=== PATIENT | female | born 1990 | race Caucasian/White ===

== ENCOUNTER 2017-11-24 06:08 | Inpatient (IN) | payer BC, SELFPAY ==
[2017-11-24] MEDS ORDERED: FENTANYL CITR 100 MCG/2 ML ONE ×4 (06:54→14:39)
[2017-11-24 06:55] LABS: Urine Blood NEGATIVE (NEG); Urine Glucose TRACE (NEG); Urine Protein NEGATIVE (NEG); Urine pH 6.5 (5.0-7.0)
[2017-11-24 07:02] LABS: Absolute Lymphocytes (CBC) 1.5 K/uL (0.7-4.9); Absolute Monocytes 0.2 K/uL (0.1-1.3); Absolute Neutrophil 5.6 K/uL (1.8-8.0); Basophils % 0.7 % (0-1.3); Eosinophils % 0.8 % (0-4.4); Hematocrit 40.6 % (36.0-45.0); Lymphocytes % 19.7 % (15.3-44.8); MCH 27.2 pg (27.0-35.0); MCV 81.5 fL (80-100); MPV 9.8 fL (7.6-11.3); Monocytes % 3.1 % (3.3-12.3); RBC Red Blood Cell Count 4.98 M/uL (3.86-4.86)
[2017-11-24 07:04] LABS: Urine Bacteria 20-50 /HPF (<20); Urine Culture Reflex Order REFLEXED; Urine RBC <5 /HPF (NONE SEEN)
[2017-11-24 07:08] LABS: Bicarbonate 26 mEq/L (21-31); Glucose Level 233 mg/dL (65-120); Potassium 3.5 mEq/L (3.6-5.0); Sodium Level 138 mEq/L (135-145)
[2017-11-24 07:15] LABS: ALT/SGPT 21 IU/L (10-60); AST/SGOT 18 IU/L (10-42); Albumin 4.4 g/dL (3.2-5.5); Alkaline Phosphatase 56 IU/L (42-121); BUN Blood Urea Nitrogen 13 mg/dL (6-20); Bilirubin Direct 0.1 mg/dL (0-0.2); Bilirubin Total 0.5 mg/dL (0.3-1.2); Protein, Total 7.2 g/dL (6.0-8.3)
[2017-11-24] MEDS ORDERED: CEFTRIAXONE/SWI 1gm 1 GM/10 ML SYR ONE (07:16)
--- NOTE | 2017-11-24 09:12 | RAD REPORT ---
EXAM DESCRIPTION: US - Abdomen Exam Limited - 11/24/2017 7:25 am CLINICAL HISTORY: Abdominal pain. COMPARISON: None. FINDINGS: The gallbladder is borderline distended. A couple of small gallstones are suspected. The g allbladder wall is upper limits normal caliber. The common bile duct measures 7 millimeters. . IMPRESSION: Cholelithiasis with borderline gallbladder distention. Mild dilatation the common bile duct may indicate a stone within the duct.
--- NOTE | 2017-11-24 10:03 | EDPHYS ---
Physician Documentation [facility] Name: Mercedes Dubon Age: 27 yrs Sex: Female : 1990 Arrival Date: 11/24/2017 Time: 06:13 Bed 8 Private MD: ED Physician Derick Wang HPI: 11/24 07:14 This 27 yrs old Female presents to ER via Ambulatory with complaints of snw Abdominal Pain. 07:14 The patient presents with abdominal pain in the right upper quadrant. Onset: The snw symptoms/episode began/occurred suddenly, last night. The symptoms radiate to right back. Associated signs and symptoms: Pertinent positives: nausea and vomiting. The symptoms are described as sharp, steady. Severity of pain: At its worst the pain was moderate. The patient has not experienced similar symptoms in the past. The patient has not recently seen a physician. 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 - Social history:: Smoking status: Patient/guardian denies using tobacco. - Ebola Screening: : No symptoms or risks identified at this time. ROS: 07:13 Constitutional: Negative for fever, chills, and weight loss, Eyes: Negative for injury, snw pain, redness, and discharge, ENT: Negative for injury, pain, and discharge, Neck: Negative for injury, pain, and swelling, Cardiovascular: Negative for chest pain, palpitations, and edema, Respiratory: Negative for shortness of breath, cough, wheezing, and pleuritic chest pain, Back: Negative for injury and pain, : Negative for injury, bleeding, discharge, and swelling, MS/Extremity: Negative for injury and deformity, Skin: Negative for injury, rash, and discoloration, Neuro: Negative for headache, weakness, numbness, tingling, and seizure. 07:13 Abdomen/GI: Positive for abdominal pain, nausea, abdominal cramps, of the right upper quadrant. Exam: 06:50 Constitutional: This is a well developed, well nourished patient who is awake, alert, snw and in no acute distress. Head/Face: Normocephalic, atraumatic. Eyes: Pupils equal round and reactive to light, extra-ocular motions intact. Lids and lashes normal. Conjunctiva and sclera are non-icteric and not injected. Cornea within normal limits. Periorbital areas with no swelling, redness, or edema. ENT: Nares patent. No nasal discharge, no septal abnormalities noted. Tympanic membranes are normal and external auditory canals are clear. Oropharynx with no redness, swelling, or masses, exudates, or evidence of obstruction, uvula midline. Mucous membranes moist. Neck: Trachea midline, no thyromegaly or masses palpated, and no cervical lymphadenopathy. Supple, full range of motion without nuchal rigidity, or vertebral point tenderness. No Meningismus. Chest/axilla: Normal chest wall appearance and motion. Nontender with no deformity. No lesions are appreciated. Cardiovascular: Regular rate and rhythm with a normal S1 and S2. No gallops, murmurs, or rubs. Normal PMI, no JVD. No pulse deficits. Respiratory: Lungs have equal breath sounds bilaterally, clear to auscultation and percussion. No rales, rhonchi or wheezes noted. No increased work of breathing, no retractions or nasal flaring. Back: No spinal tenderness. No costovertebral tenderness. Full range of motion. Skin: Warm, dry with normal turgor. Normal color with no rashes, no lesions, and no evidence of cellulitis. MS/ Extremity: Pulses equal, no cyanosis. Neurovascular intact. Full, normal range of motion. Neuro: Awake and alert, GCS 15, oriented to person, place, time, and situation. Cranial nerves II-XII grossly intact. Motor strength 5/5 in all extremities. Sensory grossly intact. Cerebellar exam normal. Normal gait. 06:50 Abdomen/GI: Inspection: abdomen appears normal, Bowel sounds: normal, Palpation: moderate abdominal tenderness, in the right upper quadrant, Indicators: Engel's sign is positive. Vital Signs: 06:28 BP 135 / 80; Pulse 67; Resp 18; Temp 100.1(O); Pulse Ox 100% on R/A; Weight 101.15 kg; mg2 Height 5 ft. 6 in. (167.64 cm); Pain 10/10; 09:30 BP 107 / 62; Pulse 70; Resp 16; Pulse Ox 99% on R/A; Pain 7/10; sg 12:55 BP 111 / 67; Pulse 68 MON; Resp 17 S; Pulse Ox 99% on R/A; sg 13:27 Temp 98.9; sg 06:28 Body Mass Index 35.99 (101.15 kg, 167.64 cm) mg2 MDM: 06:24 Patient medically screened. snw 07:45 Data reviewed: vital signs, nurses notes. Data interpreted: Pulse oximetry: on room air snw is 100 %. Interpretation: normal. Counseling: I had a detailed discussion with the patient and/or guardian regarding: the historical points, exam findings, and any diagnostic results supporting the discharge/admit diagnosis, the presence of at least one elevated blood pressure reading (>120/80) during this emergency department visit, lab results, radiology results. Physician consultation: Dr Wang. ED course: Dr. Wang will speak with Dr Giordano re: pt condition and plan of care. 11/24 06:43 Order name: Urine Dipstick--Ancillary (enter results); Complete Time: 06:58 eb 11/24 06:43 Order name: Urine --Ancillary (enter results); Complete Time: 06:58 eb 11/24 06:45 Order name: Basic Metabolic Panel; Complete Time: 07:15 snw 11/24 06:45 Order name: CBC with Diff; Complete Time: 07:05 snw 11/24 06:45 Order name: Creatinine for Radiology; Complete Time: 07:13 snw 11/24 06:45 Order name: Hepatic Function; Complete Time: 07:15 snw 11/24 06:45 Order name: Urine Microscopic Only; Complete Time: 07:05 snw 11/24 06:45 Order name: IV Saline Lock; Complete Time: 06:52 snw 11/24 06:45 Order name: Labs collected and sent; Complete Time: 06:52 snw 11/24 06:45 Order name: US Abdomen Limited; Complete Time: 09:40 snw 11/24 07:05 Order name: Urine Culture EDMS 11/24 10:01 Order name: NPO; Complete Time: 10:02 snw Administered Medications: 06:57 Drug: fentaNYL (PF) 50 mcg Route: IVP; Site: right antecubital; mg2 07:30 Follow up: Response: No adverse reaction; Pain is decreased sg 07:22 Drug: Rocephin - (cefTRIAXone) 1 grams Route: IVPB; Infused Over: 30 mins; Site: right sg antecubital; 09:52 Drug: fentaNYL (PF) 50 mcg Route: IVP; Site: right antecubital; sg 10:29 Follow up: Response: No adverse reaction; Pain is decreased sg Disposition: 11/24/17 10:02 Hospitalization ordered by Vipul Giordano for Inpatient Admission. Preliminary diagnosis is Choledocolithiasis. - Bed requested for Telemetry/MedSurg (Inpatient). - Status is Inpatient Admission. sg - Condition is Stable. - Problem is new. - Symptoms are unchanged. UTI on Admission? No Addendum: 11/29/2017 13:29 Co-signature as Attending Physician, Derick Wang MD. g s Signatures: Dispatcher [employer] EDIA Itzel Izaguirre RN RN George Fenton RN RN Juliann Hinton, BURR MILL OPERATOR-C BURR MILL OPERATOR-Csnw Derick Wang MD MD Geovanni Squires RN RN mg2 Corrections: (The following items were deleted from the chart) 11/24 06:58 06:28 Home Meds: metformin 500 mg Oral tab; mg2 mg2 13:11 10:02 Hospitalization Ordered by Vipul Giordano MD for Inpatient Admission. Preliminary dw diagnosis is Choledocolithiasis. Bed requested for Telemetry/MedSurg (Inpatient). Status is Inpatient Admission. Condition is Stable. Problem is new. Symptoms are unchanged. UTI on Admission? No. snw 13:30 13:11 11/24/2017 10:02 Hospitalization Ordered by Vipul Giordano MD for Inpatient sg Admission. Preliminary diagnosis is Choledocolithiasis. Bed requested for Telemetry/MedSurg (Inpatient). Status is Inpatient Admission. Condition is Stable. Problem is new. Symptoms are unchanged. UTI on Admission? No. dw
--- NOTE | 2017-11-24 10:03 | ER ---
Nurse's Notes [facility] Name: Mercedes Dubon Age: 27 yrs Sex: Female : 1990 Arrival Date: 11/24/2017 Time: 06:13 Bed 8 Private MD: Diagnosis: Choledocolithiasis Presentation: 11/24 06:24 Presenting complaint: Patient states: she is having epigastric pain with vomiting and mg2 diarrhea once tonight. she took tums \T\ 0330H and flexeril \T\ 0500H. Transition of care: patient was not received from another setting of care. Onset of symptoms was November 24, 2017. Risk Assessment: Do you want to hurt yourself or someone else? Patient reports no desire to harm self or others. Initial Sepsis Screen: Does the patient meet any 2 criteria? No. Patient's initial sepsis screen is negative. Does the patient have a suspected source of infection? No. Patient's initial sepsis screen is negative. 06:24 Method Of Arrival: Ambulatory mg2 06:24 Acuity: JUAN 3 mg2 06:33 Care prior to arrival: None. 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 - Social history:: Smoking status: Patient/guardian denies using tobacco. - Ebola Screening: : No symptoms or risks identified at this time. Screenin:32 Abuse screen: Denies threats or abuse. Denies injuries from another. Nutritional mg2 screening: No deficits noted. Tuberculosis screening: No symptoms or risk factors identified. Fall Risk None identified. Assessment: 06:30 General: Appears in no apparent distress. Behavior is calm, cooperative. Pain: mg2 Complains of pain in abdomen Pain does not radiate. Pain currently is 10 out of 10 on a pain scale. Quality of pain is described as aching, Pain began gradually, Is intermittent, Noted to be grimacing. Neuro: Level of Consciousness is awake, alert, obeys commands, Oriented to person, place, time. Cardiovascular: Capillary refill < 3 seconds Patient's skin is warm and dry. Respiratory: Airway is patent Respiratory effort is even, unlabored, Respiratory pattern is regular, symmetrical. GI: Abd is soft Reports upper abdominal pain, diarrhea, epigastric pain, vomiting. : No signs and/or symptoms were reported regarding the genitourinary system. EENT: No signs and/or symptoms were reported regarding the EENT system. Derm: Skin is intact, Skin is pink, warm \T\ dry. normal. Musculoskeletal: No signs and/or symptoms reported regarding the musculoskeletal system. 06:33 GI: Bowel sounds present X 4 quads. mg2 07:15 Reassessment: Patient appears in no apparent distress at this time. Patient and/or sg family updated on plan of care and expected duration. Pain level reassessed. Patient is alert, oriented x 3, equal unlabored respirations, skin warm/dry/pink. Patient states feeling better. 09:53 Reassessment: Patient appears in no apparent distress at this time. Patient and/or sg family updated on plan of care and expected duration. Pain level reassessed. Patient is alert, oriented x 3, equal unlabored respirations, skin warm/dry/pink. pt updated on results, awaiting OR consult/Surgeon evaluation at this time, awaiting admission orders, no new ER orders have been received at this time, will continue to monitor Patient states feeling better. 10:29 Reassessment: Patient appears in no apparent distress at this time. Patient and/or sg family updated on plan of care and expected duration. Pain level reassessed. Patient is alert, oriented x 3, equal unlabored respirations, skin warm/dry/pink. pt ambulatory to the restroom, steady gait. 13:18 Reassessment: pt updated attempt to call report, no answer on 2nd floor at this time, sg pt stated understanding, will continue to call 2nd floor. Vital Signs: 06:28 BP 135 / 80; Pulse 67; Resp 18; Temp 100.1(O); Pulse Ox 100% on R/A; Weight 101.15 kg; mg2 Height 5 ft. 6 in. (167.64 cm); Pain 10/10; 09:30 BP 107 / 62; Pulse 70; Resp 16; Pulse Ox 99% on R/A; Pain 7/10; sg 12:55 BP 111 / 67; Pulse 68 MON; Resp 17 S; Pulse Ox 99% on R/A; sg 13:27 Temp 98.9; sg 06:28 Body Mass Index 35.99 (101.15 kg, 167.64 cm) mg2 ED Course: 06:13 Patient arrived in ED. al2 06:23 Geovanni Squires, RN is Primary Nurse. mg2 06:24 Juliann Hinton FNP-C is [facility]. snw 06:24 Derick Wang MD is Attending Physician. snw 06:27 Triage completed. mg2 06:30 Arm band placed on. mg2 06:33 Patient has correct armband on for positive identification. Bed in low position. Call mg2 light in reach. Side rails up X 1. 06:57 Inserted saline lock: 20 gauge in right antecubital area, using aseptic technique. mg2 Blood collected. 07:23 Primary Nurse role handed off by Geovanni Squires RN sg 07:23 George Fenton RN is Primary Nurse. sg 07:25 US Abdomen Limited In Process Unspecified. EDMS 07:29 Ultrasound completed. aa4 08:00 Diet: Patient is NPO. sg 10:01 Vipul Giordano MD is Hospitalizing Provider. snw 13:22 No provider procedures requiring assistance completed. Patient admitted, IV remains in sg place. intact, No redness/swelling at site. Administered Medications: 06:57 Drug: fentaNYL (PF) 50 mcg Route: IVP; Site: right antecubital; mg2 07:30 Follow up: Response: No adverse reaction; Pain is decreased sg 07:22 Drug: Rocephin - (cefTRIAXone) 1 grams Route: IVPB; Infused Over: 30 mins; Site: right sg antecubital; 09:52 Drug: fentaNYL (PF) 50 mcg Route: IVP; Site: right antecubital; sg 10:29 Follow up: Response: No adverse reaction; Pain is decreased sg Outcome: 10:02 Decision to Hospitalize by Provider. snw 13:28 Admitted to Med/surg accompanied by tech, via wheelchair, room 212, with chart, Report sg called to angela HUFFMAN 13:28 Condition: stable 13:28 Instructed on the need for admit, safety practices, Demonstrated understanding of instructions. 13:30 Patient left the ED. sg Signatures: Dispatcher [facility] EDMS George Fenton, RN RN sg Juliann Hinton, TAIL PULLER-C TAIL PULLER-Csnw Tanisha Pressley aa4 Cyndi Rowan al2 Geovanni Squires, RN RN mg2 Corrections: (The following items were deleted from the chart) 06:58 06:28 Home Meds: metformin 500 mg Oral tab; mg2 mg2
[2017-11-24] MEDS ORDERED: CEFOXITIN 1 GM in NA CHLORIDE 0.9% 100 ML IVPB SCH (13:43)
[2017-11-24] MEDS ORDERED: Morphine 2 MG/2 ML SYR IV PRN ×2 (13:43→18:23)
[2017-11-24] MEDS ORDERED: ACETAMINOPHEN 500 MG TAB PO PRN (13:43)
[2017-11-24] MEDS ORDERED: ONDANSETRON 4 MG/2 ML VIAL IV PRN (13:43)
[2017-11-24] MEDS ORDERED: PROPOFOL 200 MG/20 ML VIAL IV ONE ×2 (13:47→16:38)
[2017-11-24] MEDS ORDERED: MIDAZOLAM HCL 2 MG/2 ML INJ ONE ×2 (13:47→16:38)
[2017-11-24] MEDS: CEFOXITIN/SWI 1gm 1 GM/10 ML SYR IV SCH ×2 (14:03→18:32)
[2017-11-24] MEDS: D5 0.45 NS 1,000 ML IV SCH ×2 (14:10→20:09)
[2017-11-24] MEDS ORDERED: GLYCOPYRROLATE 0.2 MG/ML SYR ONE ×2 (14:11→17:45)
[2017-11-24] MEDS ORDERED: NEOSTIGMINE 1 MG/ML -5 ML SYRINGE ONE (14:12)
[2017-11-24] MEDS ORDERED: ROCURONIUM 50 MG/5 ML VIAL IV ONE ×2 (14:12→16:38)
[2017-11-24] MEDS ORDERED: LIDOCAINE 2% INJ, MPF 2 ML 1 ML ONE (14:17)
[2017-11-24] MEDS ORDERED: NA CHLORIDE 0.9% 1,000 ML ONE (15:12)
[2017-11-24] MEDS: BUPIVACAINE 0.5% Inj,MDV 50 mL VIAL ONE ×2 (15:51→17:01)
[2017-11-24] MEDS ORDERED: SUCCINYLCHOLINE 20 MG/ML (10 ML) IV ONE (16:33)
[2017-11-24] MEDS ORDERED: FENTANYL CITR 250 MCG/5 ML ONE (16:38)
--- NOTE | 2017-11-24 16:49 | P.HP ---
Date of Service: 11/24/17 PC: This 27-year-old female presents to the emergency room with severe abdominal pain for diagnosis and treatment. HPC: Patient has been experiencing pain in the right upper quadrant, going straight to her shoulder blade. Describes as very severe. Never had a pain like that before. PMH: 2 para 2 PSHx: 2 C-sections SOC: No known allergies SYS REVIEW: No cough, wheeze, shortness of breath. No chest pain or palpitations. No urinary complaints O/E awake alert vital signs are stable HEENT: Within normal limits, not jaundice Chest: Clear ABD: Soft nontender LOCO: Intact DATA: Elevated white cell count, CT scan demonstrates cholecystitis IMPRESSION: Cholecystitis with cholelithiasis PLAN: I will take her to the operating room for laparoscopic possible open cholecystectomy with intraoperative cholangiogram. The risks of this procedure have been discussed. The possibility of bleeding, infection, injury to bile ducts blood vessels and intestines were described. The possible need for an open and/or further surgeries and procedures was discussed. She understands and wants us to proceed.
[2017-11-24] MEDS ORDERED: DEXAMETHASONE 10 MG/ML VIAL ONE (17:09)
[2017-11-24] MEDS ORDERED: ONDANSETRON HCL 40 MG/20 ML VIAL ONE (17:14)
[2017-11-24] MEDS ORDERED: Ringers Lactate 1,000 ML IV ONE (17:28)
[2017-11-24] MEDS ORDERED: LABETALOL HCL 100 MG/20 ML ONE (17:28)
[2017-11-24] MEDS ORDERED: MEPERIDINE HCL 25 MG/0.5 ML ONE (18:04)
[2017-11-24] MEDS ORDERED: KETOROLAC 30 MG/ML INJ ONE (18:05)
--- NOTE | 2017-11-24 18:11 | P.OP ---
Preoperative diagnosis: Acute cholecystitis with cholelithiasis Postoperative diagnosis: The site Primary procedure: Laparoscopic cholecystectomy Secondary procedure: Cholangiogram Anesthesia: General Estimated blood loss: Than 20 cc Specimen: 1 gallbladder Operative Technique: The patient was brought to the operating room placed supine on the table. After the induction of adequate general endotracheal anesthesia, the area of the abdomen was prepped with a DuraPrep solution, and draped in the usual aseptic manner. A subumbilical incision was made. This brought down through the skin and subcutaneous tissue. The Visiport was used to enter the peritoneal cavity and created pneumoperitoneum to approximately 12 mm of mercury. Under direct vision a 5 mm trocar was placed in the upper midline, and 2 other 5 mm trocars on the right lateral side. The patient's head was then elevated and rolled towards the router machine operator's side. We could see a distended gallbladder. A grasper was placed on the fundus of the gallbladder. Another 1 was placed down by Pau's pouch. Applying lateral traction we were able to dissect and expose the cystic duct and artery. The artery was dealt with 1st. It was clipped and divided in the usual manner. A clip was then placed between the gallbladder and the cystic duct. An opening was made into the cystic duct. We attempted then to pass the cholangiocath into the cystic duct. The cholangiogram demonstrated good flow contrast into the duodenum, no filling defects were noted. Clips were now placed on the distal portion of the cystic duct. The cystic duct was then divided. The gallbladder was now dissected free from the liver bed, placed into an Endo-Catch, and brought out through the umbilical trocar site. The gallbladder fossa was inspected to ensure adequate hemostasis. It was irrigated with a saline solution and the irrigant aspirated from the peritoneal cavity. 0.25% Marcaine was aerosolized into the right upper quadrant and the gallbladder fossa. The umbilical trocar site was now approximated with an Endo Close and an absorbable sutures. The pneumoperitoneum was then collapsed, the suture tied, and juan applied to the skin. A further 0.25% Marcaine was injected around are incision sites. At the end of the procedure the patient was in a stable condition when sent to the recovery room. Needle sponge instrument count were correct. 1 specimen was sent for histopathology. Complications: None Transferred to: Recovery Room Condition: Good
[2017-11-24] MEDS ORDERED: HYDROCODONE/APAP 7.5/325 MG TAB PO PRN (18:23)
--- NOTE | 2017-11-24 19:16 | RAD REPORT ---
EXAM DESCRIPTION: RAD - Cholangiogram Oper-Xray Or - 11/24/2017 5:34 pm FINDINGS: Abdominal fluoroscopy performed. Multiple portable C-arm views were obtained during intraoperative cholangiogram. No duct stone, stric ture or mass within the biliary tree. Contrast collection in the right upper quadrant is presumed to be gallbladder prior to resection. Assessment is limited when only selected images are available. Correlation is needed with findings du ring real-time evaluation.
[2017-11-24] MEDS ORDERED: CEFOXITIN/SWI 1gm 1 GM/10 ML SYR ONE (23:31)
[2017-11-25] MEDS: D5 0.45 NS 1,000 ML IV SCH (05:34)
[2017-11-25] MEDS: CEFOXITIN/SWI 1gm 1 GM/10 ML SYR IV SCH ×3 (05:36→12:00)
== END 2017-11-25 13:06 | disposition home or self-care (01) | DRG 419 ==
LOC: ER 06:08 → ERHOLD 10:23 → 2ND 13:27
PROVIDERS: ADMIT Surgery; ATTEND Surgery
PROC: BF00YZZ Plain Radiography of Bile Ducts using Other Contrast (ICD-10-PCS; 2017-11-24)
PROC: 0FT44ZZ Resection of Gallbladder, Percutaneous Endoscopic Approach (ICD-10-PCS; principal; 2017-11-24 13:30)
DX: K80.00 Calculus of gallbladder with acute cholecystitis without obstruction (principal)
CPT/HCPCS: 36415; 74300; 76705; 80048; 80076; 81003; 81015; 81025; 82962; 85025; 87086; 87088; 88304; 96374; 96375; 99285; J0330; J0696; J1100; J2175; J2250; J2270; J2405; J2710; J3010; J3490; J7030; Q9967